=== PATIENT | male | born 1970 | race Hispanic/Latino ===

== ENCOUNTER 2020-07-19 15:46 | Emergency (ER) | payer SELFPAY ==
[2020-07-19 16:55] LABS: Amphetamine Screen,Urine Negative; Benzodiazepines Screen,Urine Negative; Cannabinoid Screen,Urine Negative; Cocaine Screen,Urine Negative; Methadone Screen,Urine Negative; Opiate Screen,Urine Negative
[2020-07-19 16:55] LABS: Basophils # (Auto) 0.1 K/mm3 (0.0-0.1); Basophils % (Auto) 0.6 % (0.0-1.8); Eosinophils # (Auto) 0.1 K/mm3 (0.0-0.4); Eosinophils % (Auto) 1.3 % (0.0-4.3); Hematocrit 44.3 % (35.5-45.6); Hemoglobin 15.4 gm/dl (11.8-15.2); Lymphocytes # (Auto) 4.3 K/mm3 (1.2-5.4); Lymphocytes % (Auto) 41.8 % (13.4-35.0); Mean Corpuscular HGB Conc 35 % (32-34); Mean Corpuscular Volume 92 fl (84-94); Monocytes # (Auto) 0.7 K/mm3 (0.0-0.8); Monocytes % (Auto) 6.8 % (0.0-7.3); Platelet Count 165 K/mm3 (140-440); Red Blood Count 4.79 M/mm3 (3.65-5.03)
[2020-07-19 17:00] LABS: Bilirubin,Urine NEG (Negative); Blood,Urine NEG (Negative); Color,Urine Colorless (Yellow); Protein,Urine <15 mg/dL mg/dL (Negative); RBC,Urine < 1.0 /HPF (0.0-6.0); Urobilinogen,Urine < 2.0 mg/dL (<2.0); WBC,Urine < 1.0 /HPF (0.0-6.0)
[2020-07-19 17:03] LABS: BUN/Creatinine Ratio 8; Blood Urea Nitrogen 6 mg/dL (9-20); Calcium 9.2 mg/dL (8.4-10.2); Hemolysis Index 9
[2020-07-19] MEDS ORDERED: SODIUM CHLORIDE 0.9% 1000 ML 1,000 ML IV ONE (17:44)
[2020-07-19] MEDS ORDERED: LORazepam 2 MG/ML VIAL IM PRN (17:44)
[2020-07-19] MEDS ORDERED: HALOPERIDOL LACTATE 5 MG/1 ML INJ IM PRN (17:44)
[2020-07-19] MEDS ORDERED: POTASSIUM CHLORIDE ER 20 MEQ TAB PO ONE (17:45)
[2020-07-19] MEDS ORDERED: chlordiazePOXIDE 25 MG CAP PO PRN ×2 (17:45)
[2020-07-19] MEDS ORDERED: LORazepam 2 MG TAB PO PRN (17:45)
[2020-07-19] MEDS ORDERED: LORazepam 2 MG/ML VIAL IV PRN (17:45)
--- NOTE | 2020-07-19 17:47 | Emergency Department Report ---
<BC MCGRATH - Last Filed: 07/19/20 18:46> ED General Adult HPI - General Chief complaint: Psych Stated complaint: MH Time Seen by Provider: 07/19/20 17:35 - Related Data Home Medications Medication Instructions Recorded Confirmed Last Taken No Known Home Medications [No 07/19/20 07/19/20 Unknown Reported Home Medications] Allergies Allergy/AdvReac Type Severity Reaction Status Date / Time No Known Allergies Allergy Unverified 07/22/20 09:58 ED Past Medical Hx - Medications Home Medications: Home Medications Medication Instructions Recorded Confirmed Last Taken Type No Known Home Medications [No 07/19/20 07/19/20 Unknown History Reported Home Medications] - Procedure Description Procedures done: Under sterile field, I used Betadine to clean the area. I then used 2% lidocaine plain and injected 3 mL to the proximal right index for digital block. I then used a high-temperature cautery to the right index nail. Minimal bleeding noted from the nail with successful subungual hematoma eviction. Patient tolerated procedure well with no signs of distress. ED Medical Decision Making - Lab Data Result diagrams: 07/19/20 16:05 07/19/20 16:05 ED Disposition Clinical Impression: Hypokalemia, Medical clearance for psychiatric admission Alcohol dependence Qualifiers: Substance use status: alcohol-induced psychotic disorder Complication of substance-induced condition: with unspecified complication Qualified Code(s): F10.259 - Alcohol dependence with alcohol-induced psychotic disorder, unspecified Subungual contusion of finger Qualifiers: Encounter type: initial encounter Qualified Code(s): S60.10XA - Contusion of unspecified finger with damage to nail, initial encounter Disposition: DC/TX-70 ANOTHER TYPE HLTHCARE Condition: Good Referrals: PRIMARY CARE, [Primary Care Provider] - 3-5 Days <MARY GRACE ACOSTA - Last Filed: 07/21/20 03:36> ED Course - Reevaluation(s) Reevaluation #2: 07/21/20 03:37 daily potassium ordered discontinued since pt po Kcl is not in normal range. ED Medical Decision Making - Lab Data Result diagrams: 07/19/20 16:05 07/19/20 20:50 <MADI CONNELLY - Last Filed: 07/23/20 06:13> ED General Adult HPI - General PUI?: No Source: patient, RN notes reviewed Mode of arrival: Ambulatory Limitations: Other (Alcohol intoxication) - History of Present Illness Initial comments: The patient was evaluated in the emergency department for symptoms described in the history of present illness. He/she was evaluated in the context of the global COVID-19 pandemic, which necessitated consideration that the patient might be at risk for infection with the virus that causes COVID-19. Institutional protocols and algorithms that pertain to the evaluation of pat ients at risk for COVID-19 are in a state of rapid change based on information released by regulatory bodies including the CDC and federal and state organizations. These policies and algorithms were followed during the patient's care in the emergency department. Please note that these policies, procedures and recommendations changed on a rapid basis. Patient is a 50-year-old gentleman. He is not known to myself previously. He reports that he has a history of alcoholism, and hepatitis C. The patient presents to the ER today with a complaint of painless suicidality. The patient is also stating that he wants to "get off alcohol." His last alcoholic beverage was earlier on today. He states he would not really kill himself, "because I am a good Shinto, and I would never do that to myself." The patient is right-hand dominant and states he is up-to-date with tetanus vaccination. He denies headache, neck pain, chest pain, abdominal pain, shortness of breath, hematemesis and bright red blood per rectum, and he denies trying to overdose on anything. However, he states that he has contemplated overdosing. On review of systems, he has sharp throbbing aching pain in his right pointer finger, after a crush injury at work yesterday. Otherwise, denies new or different physical pain. He states that he walks to this hospital. He is not accompanied by friends or family at this time for additional information/collateral information. His sensation of suicidality at this point time is in constant, Neurontin, does not radiate anywhere, he does not endorse any exacerbating or relieving factors. -: days(s) Location: right, upper extremity Radiation: other Quality: other Consistency: other Improves with: other Worsens with: other Associated Symptoms: other ED Review of Systems ROS: Stated complaint: MH Other details as noted in HPI Constitutional: see HPI Eyes: as per HPI ENT: as per HPI Respiratory: see HPI Cardiovascular: as per HPI Endocrine: see HPI Gastrointestinal: as per HPI Genitourinary: as per HPI Musculoskeletal: as per HPI Skin: as per HPI Neurological: as per HPI Psychiatric: as per HPI Hematological/Lymphatic: as per HPI ED Past Medical Hx - Past Medical History Additional medical history: HEP C - Surgical History Additional Surgical History: EYE SURGERY - Social History Smoking Status: Current Every Day Smoker Substance Use Type: Alcohol ED Physical Exam - General Limitations: No Limitations General appearance: appears intoxicated - Head Head exam: Present: atraumatic, normocephalic - Eye Eye exam: Present: normal appearance, EOMI - ENT ENT exam: Present: normal exam, normal orophraynx, mucous membranes moist, normal external ear exam - Neck Neck exam: Present: normal inspection, full ROM. Absent: tenderness, meningismus - Respiratory Respiratory exam: Present: normal lung sounds bilaterally. Absent: respiratory distress, wheezes, rales, rhonchi, stridor, decreased breath sounds - Cardiovascular Cardiovascular Exam: Present: regular rate, normal rhythm, normal heart sounds. Absent: bradycardia, tachycardia, irregular rhythm, systolic murmur, diastolic murmur, rubs, gallop - GI/Abdominal GI/Abdominal exam: Present: soft. Absent: distended, tenderness, guarding, rebound, rigid, pulsatile mass - Rectal Rectal exam: Present: deferred - Extremities Exam Extremities exam: Present: full ROM, tenderness (There is right pointer finger tenderness), other (2+ pulses noted in the bilateral upper extremities. There is no long bony tenderness. The muscular compartments are soft. The pelvis is stable). Absent: normal inspection (Upper extremities are within normal limits, with the exception of the distal dorsal aspect of the right pointer finger, whic h is somewhat tender, and has an ecchymosis underneath the nail bed. The ecchymosis compresses 100% of the area underneath the nailbed), pedal edema, calf tenderness - Back Exam Back exam: Present: normal inspection. Absent: tenderness, CVA tenderness (R), CVA tenderness (L), paraspinal tenderness, vertebral tenderness - Neurological Exam Neurological exam: Present: alert, other (No facial droop. Tongue midline. Ex traocular movements intact bilaterally. Facial sensation intact to light touch in V1, V2, V3 distribution bilaterally. 5 and a 5 strength in 4 extremities. Sensation intact to light touch in 4 extremities.) - Psychiatric Psychiatric exam: Present: anxious, suicidal ideation. Absent: homicidal ideation - Skin Skin exam: Present: warm, dry, intact, normal color. Absent: rash ED Course Vital Signs 07/19/20 07/19/20 07/19/20 16:02 17:46 17:53 Temperature 98.0 F 98.0 F Pulse Rate 98 H 87 Respiratory 20 24 20 Rate Blood Pressure 120/81 Blood Pressure 101/66 [Right] O2 Sat by Pulse 96 99 99 Oximetry 07/19/20 07/20/20 07/20/20 20:10 16:17 19:40 Temperature 97.8 F 98.5 F 98.4 F Pulse Rate 79 89 87 Respiratory 18 17 18 Rate Blood Pressure Blood Pressure 148/89 146/86 165/96 [Right] O2 Sat by Pulse 98 94 95 Oximetry 07/21/20 07/21/20 07/21/20 02:03 07:55 07:57 Temperature 97.9 F 98.1 F Pulse Rate 86 89 Respiratory 18 18 18 Rate Blood Pressure Blood Pressure 157/89 142/92 [Right] O2 Sat by Pulse 95 97 97 Oximetry 07/21/20 07/21/20 07/21/20 14:30 19:45 21:54 Temperature 97.8 F 97.8 F Pulse Rate 88 94 H Respiratory 18 18 18 Rate Blood Pressure Blood Pressure 154/98 133/90 [Right] O2 Sat by Pulse 96 97 Oximetry 07/21/20 07/22/20 07/22/20 22:54 02:06 08:00 Temperature 98.0 F Pulse Rate 76 Respiratory 18 16 Rate Blood Pressure Blood Pressure 129/81 [Right] O2 Sat by Pulse 95 95 Oximetry 07/22/20 07/22/20 08:37 19:15 Temperature 98.0 F 97.9 F Pulse Rate 85 88 Respiratory 20 16 Rate Blood Pressure 146/93 Blood Pressure 149/97 [Right] O2 Sat by Pulse 96 94 Oximetry - Reevaluation(s) Reevaluation #1: 07/19/20 19:21 Differential diagnosis, including but not limited to: Alcohol intoxication, electrolyte derangement, subungual hematoma, right pointer finger fracture, dislocation, contusion, drug-induced psychiatric disorder, medical clearance for psychiatric placement, alcoholic starvation ketosis Assessment and plan: 50-year-old gentleman who is intoxicated and suicidal. In terms of the patient's suicidality, placed on hold, obtain psychiatric consultation. Place patient on alcohol withdrawal protocol. In terms of alcohol intoxication, start multivitamin, thiamine, give IV fluids, repeat basic metabolic panel. Replete hypokalemia, mild anion gap is likely secondary to alcoholic starvation ketosis. In terms of right pointer finger subungual hematoma, x-ray of the finger shows no fracture or dislocation, the patient states he is up-to-date with tetanus vaccination. Performed trephination of nail to relieve subungual hematoma, and placed in a finger splint. Reassess after aforementioned interventions, and when clinically sober, and when patient has completed his psychiatric evaluation. We anticipate that once the patient is sober, if he presents is lucid, calm and cooperative, and is not homicidal suicidal, outpatient management would be appropriate Reevaluation #2: 07/19/20 21:48 Repeat basic metabolic panel shows improvement in potassium as well as market improvement in anion gap. Patient resting comfortably and in no acute distress, elevated CK reviewed and appreciated, renal function within normal limits, muscular compartments are soft. At this point in time, patient does not appear to have an immediate medical contraindication to psychiatric admission, evaluation, consultation and placement. A 1013 was recommended by the psychiatry consulting team, therefore, it has been ordered and executed. ED Medical Decision Making - Lab Data Result diagrams: 07/19/20 16:05 07/19/20 20:50 Vital Signs 07/19/20 07/19/20 07/19/20 16:02 17:46 17:53 Temperature 98.0 F 98.0 F Pulse Rate 98 H 87 Respiratory 20 24 20 Rate Blood Pressure 120/81 Blood Pressure 101/66 [Right] O2 Sat by Pulse 96 99 99 Oximetry Lab Results 07/19/20 07/19/20 07/19/20 Range/Units 16:05 16:05 16:05 WBC (4.5-11.0) K/mm3 RBC (3.65-5.03) M/mm3 Hgb (11.8-15.2) gm/dl Hct (35.5-45.6) % MCV (84-94) fl MCH (28-32) pg MCHC (32-34) % RDW (13.2-15.2) % Plt Count (140-440) K/mm3 Lymph % (Auto) (13.4-35.0) % Ellis % (Auto) (0.0-7.3) % Eos % (Auto) (0.0-4.3) % Baso % (Auto) (0.0-1.8) % Lymph # (Auto) (1.2-5.4) K/mm3 Ellis # (Auto) (0.0-0.8) K/mm3 Eos # (Auto) (0.0-0.4) K/mm3 Baso # (Auto) (0.0-0.1) K/mm3 Seg Neutrophils % (40.0-70.0) % Seg Neutrophils # (1.8-7.7) K/mm3 Sodium 142 (137-145) mmol/L Potassium 3.4 L (3.6-5.0) mmol/L Chloride 102.1 (98-107) mmol/L Carbon Dioxide 20 L (22-30) mmol/L Anion Gap 23 mmol/L BUN 6 L (9-20) mg/dL Creatinine 0.8 (0.8-1.3) mg/dL Estimated GFR > 60 ml/min BUN/Creatinine Ratio 8 % Glucose 124 H (75-100) mg/dL Calcium 9.2 (8.4-10.2) mg/dL Urine Color (Yellow) Urine Turbidity (Clear) Urine pH (5.0-7.0) Ur Specific Etlan (1.003-1.030) Urine Protein (Negative) mg/dL Urine Glucose (UA) (Negative) mg/dL Urine Ketones (Negative) mg/dL Urine Blood (Negative) Urine Nitrite (Negative) Urine Bilirubin (Negative) Urine Urobilinogen (<2.0) mg/dL Ur Leukocyte Esterase (Negative) Urine WBC (Auto) (0.0-6.0) /HPF Urine RBC (Auto) (0.0-6.0) /HPF Salicylates < 0.3 L (2.8-20.0) mg/dL Urine Opiates Screen Urine Methadone Screen Acetaminophen 5.0 L (10.0-30.0) ug/mL Ur Barbiturates Screen Ur Phencyclidine Scrn Ur Amphetamines Screen U Benzodiazepines Scrn Urine Cocaine Screen U Marijuana (THC) Screen Drugs of Abuse Note Plasma/Serum Alcohol (0-0.07) % 07/19/20 07/19/20 07/19/20 Range/Units 16:05 16:05 16:14 WBC 10.2 (4.5-11.0) K/mm3 RBC 4.79 (3.65-5.03) M/mm3 Hgb 15.4 H (11.8-15.2) gm/dl Hct 44.3 (35.5-45.6) % MCV 92 (84-94) fl MCH 32 (28-32) pg MCHC 35 H (32-34) % RDW 14.0 (13.2-15.2) % Plt Count 165 (140-440) K/mm3 Lymph % (Auto) 41.8 H (13.4-35.0) % Ellis % (Auto) 6.8 (0.0-7.3) % Eos % (Auto) 1.3 (0.0-4.3) % Baso % (Auto) 0.6 (0.0-1.8) % Lymph # (Auto) 4.3 (1.2-5.4) K/mm3 Ellis # (Auto) 0.7 (0.0-0.8) K/mm3 Eos # (Auto) 0.1 (0.0-0.4) K/mm3 Baso # (Auto) 0.1 (0.0-0.1) K/mm3 Seg Neutrophils % 49.5 (40.0-70.0) % Seg Neutrophils # 5.1 (1.8-7.7) K/mm3 Sodium (137-145) mmol/L Potassium (3.6-5.0) mmol/L Chloride (98-107) mmol/L Carbon Dioxide (22-30) mmol/L Anion Gap mmol/L BUN (9-20) mg/dL Creatinine (0.8-1.3) mg/dL Estimated GFR ml/min BUN/Creatinine Ratio % Glucose (75-100) mg/dL Calcium (8.4-10.2) mg/dL Urine Color Colorless (Yellow) Urine Turbidity Clear (Clear) Urine pH 6.0 (5.0-7.0) Ur Specific Etlan 1.002 L (1.003-1.030) Urine Protein <15 mg/dl (Negative) mg/dL Urine Glucose (UA) Neg (Negative) mg/dL Urine Ketones Neg (Negative) mg/dL Urine Blood Neg (Negative) Urine Nitrite Neg (Negative) Urine Bilirubin Neg (Negative) Urine Urobilinogen < 2.0 (<2.0) mg/dL Ur Leukocyte Esterase Neg (Negative) Urine WBC (Auto) < 1.0 (0.0-6.0) /HPF Urine RBC (Auto) < 1.0 (0.0-6.0) /HPF Salicylates (2.8-20.0) mg/dL Urine Opiates Screen Urine Methadone Screen Acetaminophen (10.0-30.0) ug/mL Ur Barbiturates Screen Ur Phencyclidine Scrn Ur Amphetamines Screen U Benzodiazepines Scrn Urine Cocaine Screen U Marijuana (THC) Screen Drugs of Abuse Note Plasma/Serum Alcohol 0.29 H (0-0.07) % 07/19/20 Range/Units 16:14 WBC (4.5-11.0) K/mm3 RBC (3.65-5.03) M/mm3 Hgb (11.8-15.2) gm/dl Hct (35.5-45.6) % MCV (84-94) fl MCH (28-32) pg MCHC (32-34) % RDW (13.2-15.2) % Plt Count (140-440) K/mm3 Lymph % (Auto) (13.4-35.0) % Ellis % (Auto) (0.0-7.3) % Eos % (Auto) (0.0-4.3) % Baso % (Auto) (0.0-1.8) % Lymph # (Auto) (1.2-5.4) K/mm3 Ellis # (Auto) (0.0-0.8) K/mm3 Eos # (Auto) (0.0-0.4) K/mm3 Baso # (Auto) (0.0-0.1) K/mm3 Seg Neutrophils % (40.0-70.0) % Seg Neutrophils # (1.8-7.7) K/mm3 Sodium (137-145) mmol/L Potassium (3.6-5.0) mmol/L Chloride (98-107) mmol/L Carbon Dioxide (22-30) mmol/L Anion Gap mmol/L BUN (9-20) mg/dL Creatinine (0.8-1.3) mg/dL Estimated GFR ml/min BUN/Creatinine Ratio % Glucose (75-100) mg/dL Calcium (8.4-10.2) mg/dL Urine Color (Yellow) Urine Turbidity (Clear) Urine pH (5.0-7.0) Ur Specific Etlan (1.003-1.030) Urine Protein (Negative) mg/dL Urine Glucose (UA) (Negative) mg/dL Urine Ketones (Negative) mg/dL Urine Blood (Negative) Urine Nitrite (Negative) Urine Bilirubin (Negative) Urine Urobilinogen (<2.0) mg/dL Ur Leukocyte Esterase (Negative) Urine WBC (Auto) (0.0-6.0) /HPF Urine RBC (Auto) (0.0-6.0) /HPF Salicylates (2.8-20.0) mg/dL Urine Opiates Screen Negative Urine Methadone Screen Negative Acetaminophen (10.0-30.0) ug/mL Ur Barbiturates Screen Negative Ur Phencyclidine Scrn Negative Ur Amphetamines Screen Negative U Benzodiazepines Scrn Negative Urine Cocaine Screen Negative U Marijuana (THC) Screen Negative Drugs of Abuse Note Disclamer Plasma/Serum Alcohol (0-0.07) % - Radiology Data Radiology results: report reviewed, image reviewed Print Report Referring Physician: MADI CONNELLY Patient Name: BAKARI HARLEY Date of : 1970 Sex: Male Report Date: 2020-07-19 Report Status: Finalized Findings [facility] [address] [place] [address] XRay Report Signed Patient: BAKARI HARLEY MR#: [id number] : 1970 Acct:[id number] Age/Sex: 50 / M ADM Date: 07/19/20 Loc: ED Attending Dr: Ordering Physician: MADI CONNLELY MD Date of Service: 07/19/20 Procedure(s): XR finger(s) 2+V RT Accession Number(s): [id number] cc: MADI CONNELLY MD Fl uoro Time In Minutes: RIGHT INDEX FINGER 3 VIEWS INDICATION / CLINICAL INFORMATION: right second finger/ pointer finger crush injury. COMPARISON: None available. FINDINGS: Fracture or dislocation is seen within the right index finger or hand. Mild soft tissue swelling is seen within the right index finger. Signer Name: Denys James MD Signed: 07/19/2020 6:16 PM Workstation Name: [id number] Transcribed By: TL Dictated By: Denys James MD Electronically Authenticated By: Denys James MD Signed Date/Time: 07/19/201815 DD/ 14 Critical care attestation.: If time is entered above; I have spent that time in minutes in the direct care of this critically ill patient, excluding procedure time. ED Disposition Is pt being admited?: No Does the pt Need Aspirin: No
[2020-07-19] MEDS ORDERED: D5W/0.45% NACL 1,000 ML IV SCH (18:00)
--- NOTE | 2020-07-19 18:21 | XRay Report ---
RIGHT INDEX FINGER 3 VIEWS INDICATION / CLINICAL INFORMATION: right second finger/ pointer finger crush injury. COMPARISON: None available. FINDINGS: Fracture or dislocation is seen within the right index finger or hand. Mild soft tissue swelling is s een within the right index finger. Signer Name: Denys James MD Signed: 07/19/2020 6:16 PM Workstation Name: [id number]
[2020-07-19] MEDS: POTASSIUM CHLORIDE 10 MEQ 10 MEQ/100 ML BAG IV SCH ×2 (18:32→19:48)
[2020-07-19] MEDS ORDERED: DEXTROSE 50% IN WATER (25GM) 50 ML SYRINGE IV PRN (19:25)
[2020-07-19] MEDS: MULTIVITAMINS ,THERAPEUTIC TAB PO SCH (19:50)
[2020-07-19 21:18] LABS: Blood Urea Nitrogen 5 mg/dL (9-20); Calcium 8.6 mg/dL (8.4-10.2); Hemolysis Index 12
[2020-07-19 21:19] LABS: BUN/Creatinine Ratio 7
[2020-07-20] MEDS ORDERED: POTASSIUM CHLORIDE ER 20 MEQ TAB PO SCH (10:00)
[2020-07-20] MEDS: THIAMINE 100 MG TAB PO SCH (11:21)
[2020-07-20] MEDS: FOLIC ACID 1 MG TAB PO SCH (11:22)
[2020-07-20] MEDS: MULTIVITAMINS ,THERAPEUTIC TAB PO SCH (11:22)
--- NOTE | 2020-07-20 13:37 | Consultation ---
History of Present Illness - Reason for Consult Consult date: 07/20/20 Reason for consult: MHE Requesting physician: MADI CONNELLY - History of Present Psychiatric Illness Per ED Provider: Patient is a 50-year-old gentleman. He is not known to myself previously. He reports that he has a history of alcoholism, and hepatitis C. The patient presents to the ER today with a complaint of painless suicidality. The patient is also stating that he wants to "get off alcohol." His last alcoholic beverage was earlier on today. He states he would not really kill himself, "because I am a good Druze, and I would never do that to myself." The patient is right-hand dominant and states he is up-to-date with tetanus v accination. He denies headache, neck pain, chest pain, abdominal pain, shortness of breath, hematemesis and bright red blood per rectum, and he denies trying to overdose on anything. However, he states that he has contemplated overdosing. He states that he walks to this hospital. He is not accompanied by friends or family at this time for additional information/collateral information. His sensation of suicidality at this point time is in constant, Neurontin, does not radiate anywhere, he does not endorse any exacerbating or relieving factors. Per MHA: Pt is a 50 yo male presenting to ED for MHE, as pt SI with plan, alcohol abuse. During ax, pt presented with cooperative behaviors, anxious mood and incongruent affect. Pt reports onset of SI with plan 07/19/20. Pt reports plan to cut wrists. Pt repots SI daily for two weeks "I haven't done good with life, children, marriage". Pt identified trigger of family discord and raising grandchildren. Pt denies hx of attempts. Pt denies HI. Pt reports A/V Hallucinations. Pt reports a small child is talking to him and he can see her. Pt reprots hx of Bipolar Disorder, Anxiety. Pt is noncompliant with medications and mh tx for four months. Pt reports alcohol abuse. Pt reports drinking a 1/5 of "whatever" I can get daily since age 18. Pt reports last use 07/19/20 before admission. Denies drug use or abuse. Pt does present with any active withdrawal symptoms including nausea, vomiting , shaking. Pt denies hx of withdrawl symptoms. Pt reports stable housing with spouse in [place], [place]. Pt is employed FT and travels for work. Pt denies legal issues. 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 PSYCH HPI Patient is a 50-year old currently homeless unemployed and male with past psychiatric history of PTSD and severe anxiety and past medical history of hypertension presented to the ED requesting for detox and also with complaint of suicidal ideations. Patient self acknowledges being an alcoholic says that he needs to get clean and wants to get some help with detoxification. Patient stated that ER called the sober living center and they recommended if he gets mental and medical help for his alcohol use and suicidal thoughts before he can come back for processing. Patient reported he has been drinking since age 10, and he drinks also of alcoholic drinks almost every day, reported alcohol influencing his marriage and negative way and is leading to divorce and no communication effort between him and his kids. Patient states he has been having jittery anxiety stable because he has been thinking about killing himself. PAST PSYCHIATRIC HISTORY Diagnoses: PTSD and severe anxiety Suicide attempts or Self-harm behavior: Yes Prior psychiatric hospitalizations: yes Substance Abuse history: Alcohol Previous psychiatric medications tried: Yes Outpatient treatment: unknown PAST MEDICAL HISTORY: HTN Family Psychiatric History: None reported or documented SOCIAL HISTORY Marital Status: Living Arrangements: homeless Employment Status: unemployed Access to guns/weapons: none reported Education: College drop out History of Abuse: none reported Legal History: yes REVIEW OF SYSTEMS Constitutional: Negative for weight loss ENT: Negative for stridor Respiratory: Negative for cough or hemoptysis All other systems reviewed and are negative MENTAL STATUS EXAMINATION General Appearance and Behavior: Age appropriate, good hygiene, wearing appropriate clothes, lying in bed, good eye contact, cooperative polite with questioning. Cooperation: Participating/engaged, Psychomotor Behavior: unremarkable and within normal limits Mood: Depressed Affect and affective range: dysthymic, Thought Process: Fluent/Logical, Thought Content: Hopelessness, Helplessness, Speech: Normal volume, Regular rate and rhythm Intellectual Functioning: Average Suicidal Ideation: Suicidal Homicidal Ideation: Denies HI Impulse Control: Unimpaired Insight and Judgment: Normal insight and judgment Memory: Normal, Attention: Normal, Orientation: Alert, oriented, Assessment and Plan - Psychiatric problem (1) MDD (major depressive disorder) Current Visit: Yes Status: Acute (2) Alcohol use disorder Current Visit: Yes Status: Acute Treatment Plan MEDICATIONS: Restarted home medications Risks, benefits and alternatives of medications discussed with the patient, questions answered and consent obtained from patient. PSYCHOTHERAPY: Supportive psychotherapy provided MEDICAL: Per primary team DELIRIUM PRECAUTIONS: Please re-orient patient frequently, keep lights on during the day, and minimize benzodiazepines and opiates as these medications could worsen patient's confusion. PAGE MAKEUP SYSTEM OPERATOR: DISPOSITION: Do Recommend acute inpatient psychiatric hospitalization at this time LEGAL STATUS: 1013 FOLLOW-UP: Will follow Thank you for the consult. Please contact with any questions and/or concerns. Medications and Allergies Allergies Allergy/AdvReac Type Severity Reaction Status Date / Time No Known Allergies Allergy Unverified 07/19/20 15:58 Home Medications Medication Instructions Recorded Confirmed Last Taken Type No Known Home Medications [No 07/19/20 07/19/20 Unknown History Reported Home Medications] Active Meds: Active Medications Chlordiazepoxide HCl (Librium) 50 mg PO Q1HR PRN PRN Reason: CIWA-Ar 8-15 Chlordiazepoxide HCl (Librium) 100 mg PO Q1HR PRN PRN Reason: CIWA-Ar 16-25 Dextrose (D50w (25gm) Syringe) 50 ml IV Q30MIN PRN; Protocol PRN Reason: Hypoglycemia Folic Acid (Folvite) 1 mg PO QDAY [facility] Last Admin: 07/20/20 11:22 Dose: 1 mg Documented by: Haloperidol Lactate (Haldol) 5 mg IM Q6HR PRN PRN Reason: Agitation Dextrose/Sodium Chloride (D5/0.45ns) 1,000 mls @ 0 mls/hr IV DIRECT [facility] Last Admin: 07/19/20 18:25 Dose: 999 mls/hr Documented by: Lorazepam (Ativan) 2 mg IM Q4HR PRN PRN Reason: Agitation Lorazepam (Ativan) 2 mg PO Q1HR PRN PRN Reason: CIWA-Ar 8-15 Lorazepam (Ativan) 4 mg PO Q1HR PRN PRN Reason: CIWA-Ar 16-25 Last Admin: 07/19/20 19:11 Dose: 4 mg Documented by: Lorazepam (Ativan) 4 mg IV Q15MIN PRN PRN Reason: CIWA-Ar >25 Multivitamins (Theragran Tab) 1 each PO QDAY [facility] Last Admin: 07/20/20 11:22 Dose: 1 each Documented by: Potassium Chloride (K-Dur) 40 meq PO QDAY [facility] Last Admin: 07/20/20 11:22 Dose: 40 meq Documented by: Thiamine HCl (Vitamin B-1) 100 mg PO QDAY [facility] Last Admin: 07/20/20 11:21 Dose: 100 mg Documented by: Mental Status Exam - Vital signs Last Vital Signs Temp 97.8 F 07/19/20 20:10 Pulse 79 07/19/20 20:10 Resp 18 07/19/20 20:10 BP 148/89 07/19/20 20:10 Pulse Ox 98 07/19/20 20:10 Results Result Diagrams: 07/19/20 16:05 07/19/20 20:50 Abnormal lab results 07/19/20 07/19/20 07/19/20 Range/Units 16:05 16:05 16:05 Hgb (11.8-15.2) gm/dl MCHC (32-34) % Lymph % (Auto) (13.4-35.0) % Potassium 3.4 L (3.6-5.0) mmol/L Carbon Dioxide 20 L (22-30) mmol/L BUN 6 L (9-20) mg/dL Creatinine (0.8-1.3) mg/dL Glucose 124 H (75-100) mg/dL Total Creatine Kinase (55-170) units/L Ur Specific [place] (1.003-1.030) Salicylates < 0.3 L (2.8-20.0) mg/dL Acetaminophen 5.0 L (10.0-30.0) ug/mL Plasma/Serum Alcohol (0-0.07) % 07/19/20 07/19/20 07/19/20 Range/Units 16:05 16:05 16:05 Hgb 15.4 H (11.8-15.2) gm/dl MCHC 35 H (32-34) % Lymph % (Auto) 41.8 H (13.4-35.0) % Potassium (3.6-5.0) mmol/L Carbon Dioxide (22-30) mmol/L BUN (9-20) mg/dL Creatinine (0.8-1.3) mg/dL Glucose (75-100) mg/dL Total Creatine Kinase 402 H (55-170) units/L Ur Specific [place] (1.003-1.030) Salicylates (2.8-20.0) mg/dL Acetaminophen (10.0-30.0) ug/mL Plasma/Serum Alcohol 0.29 H (0-0.07) % 07/19/20 07/19/20 Range/Units 16:14 20:50 Hgb (11.8-15.2) gm/dl MCHC (32-34) % Lymph % (Auto) (13.4-35.0) % Potassium (3.6-5.0) mmol/L Carbon Dioxide (22-30) mmol/L BUN 5 L (9-20) mg/dL Creatinine 0.7 L (0.8-1.3) mg/dL Glucose 101 H (75-100) mg/dL Total Creatine Kinase (55-170) units/L Ur Specific [place] 1.002 L (1.003-1.030) Salicylates (2.8-20.0) mg/dL Acetaminophen (10.0-30.0) ug/mL Plasma/Serum Alcohol (0-0.07) % All other labs normal. Assessment and Plan - Psychiatric problem (1) MDD (major depressive disorder) Current Visit: Yes Status: Acute (2) Alcohol use disorder Current Visit: Yes Status: Acute
[2020-07-20] MEDS: SERTRALINE 50 MG TAB PO SCH (15:00)
[2020-07-20] MEDS: traZODone 50 MG TAB PO SCH (22:02)
[2020-07-21] MEDS: THIAMINE 100 MG TAB PO SCH (09:50)
[2020-07-21] MEDS: SERTRALINE 50 MG TAB PO SCH (09:51)
[2020-07-21] MEDS: MULTIVITAMINS ,THERAPEUTIC TAB PO SCH (09:51)
[2020-07-21] MEDS: LORazepam 2 MG TAB PO PRN ×2 (09:51→14:34)
[2020-07-21] MEDS: FOLIC ACID 1 MG TAB PO SCH (09:51)
--- NOTE | 2020-07-21 11:17 | Progress Note ---
Subjective - Reason for Consult Consult date: 07/21/20 Reason for consult: MHE Requesting physician: MADI CONNELLY - Chief Complaint Chief complaint: Psych Progress Patient seen today, reports improvement in sleep, still endorses SI, and hearing voices telling him to hurt self. Patient also reports still feeling jittery and shaky. REVIEW OF SYSTEMS Constitutional: Negative for weight loss ENT: Negative for stridor Respiratory: Negative for cough or hemoptysis All other systems reviewed and are negative MENTAL STATUS EXAMINATION General Appearance and Behavior: Age appropriate, good hygiene, wearing appropriate clothes, lying in bed, good eye contact, cooperative polite with questioning. Cooperation: Participating/engaged, Psychomotor Behavior: unremarkable and within normal limits Mood: Depressed Affect and affective range: dysthymic, Thought Process: Fluent/Logical, Thought Content: Hopelessness, Helplessness, Speech: Normal volume, Regular rate and rhythm Intellectual Functioning: Average Suicidal Ideation: Suicidal Homicidal Ideation: Denies HI Impulse Control: Unimpaired Insight and Judgment: Normal insight and judgment Memory: Normal, Attention: Normal, Orientation: Alert, oriented, Assessment and Plan - Psychiatric problem (1) MDD (major depressive disorder) Current Visit: Yes Status: Acute (2) Alcohol use disorder Current Visit: Yes Status: Acute Treatment Plan MEDICATIONS: Restarted home medications Risks, benefits and alternatives of medications discussed with the patient, questions answered and consent obtained from patient. PSYCHOTHERAPY: Supportive psychotherapy provided MEDICAL: Per primary team DELIRIUM PRECAUTIONS: Please re-orient patient frequently, keep lights on during the day, and minimize benzodiazepines and opiates as these medications could worsen patient's confusion. THERAPEUTIC ASSISTANT: DISPOSITION: Do Recommend acute inpatient psychiatric hospitalization at this time LEGAL STATUS: 1013 FOLLOW-UP: Will follow Thank you for the consult. Please contact with any questions and/or concerns. Mental Status Exam - Vital signs Last Vital Signs Temp 98.1 F 07/21/20 07:57 Pulse 89 07/21/20 07:57 Resp 18 07/21/20 07:57 BP 142/92 07/21/20 07:57 Pulse Ox 97 07/21/20 07:57 Assessment and Plan - Patient Problems (1) MDD (major depressive disorder) Current Visit: Yes Status: Acute (2) Alcohol use disorder Current Visit: Yes Status: Acute
[2020-07-21] MEDS ORDERED: ACETAMINOPHEN 500 MG TAB PO ONE (21:32)
[2020-07-21] MEDS: traZODone 50 MG TAB PO SCH (21:54)
[2020-07-22] MEDS: SERTRALINE 50 MG TAB PO SCH (09:38)
[2020-07-22] MEDS: THIAMINE 100 MG TAB PO SCH (09:38)
[2020-07-22] MEDS: MULTIVITAMINS ,THERAPEUTIC TAB PO SCH (09:38)
[2020-07-22] MEDS: FOLIC ACID 1 MG TAB PO SCH (09:38)
--- NOTE | 2020-07-22 10:43 | Progress Note ---
Subjective - Reason for Consult Consult date: 07/22/20 Reason for consult: MHE Requesting physician: MADI CONNELLY - Chief Complaint Chief complaint: Psych Progress Patient seen today, when asked how he was doing, says he is still alive he guess and he karolina make it. Reports mood is okay but still endorses SI, and hearing voices telling him to hurt self. REVIEW OF SYSTEMS Constitutional: Negative for weight loss ENT: Negative for stridor Respiratory: Negative for cough or hemoptysis All other systems reviewed and are negative MENTAL STATUS EXAMINATION General Appearance and Behavior: Age appropriate, good hygiene, wearing appropriate clothes, lying in bed, good eye contact, cooperative polite with questioning. Cooperation: Participating/engaged, Psychomotor Behavior: unremarkable and within normal limits Mood: Depressed Affect and affective range: dysthymic, Thought Process: Fluent/Logical, Thought Content: Hopelessness, Helplessness, Speech: Normal volume, Regular rate and rhythm Intellectual Functioning: Average Suicidal Ideation: Suicidal Homicidal Ideation: Denies HI Impulse Control: Unimpaired Insight and Judgment: Normal insight and judgment Memory: Normal, Attention: Normal, Orientation: Alert, oriented, Assessment and Plan - Psychiatric problem (1) MDD (major depressive disorder) Current Visit: Yes Status: Acute (2) Alcohol use disorder Current Visit: Yes Status: Acute Treatment Plan MEDICATIONS: Restarted home medications Risks, benefits and alternatives of medications discussed with the patient, questions answered and consent obtained from patient. PSYCHOTHERAPY: Supportive psychotherapy provided MEDICAL: Per primary team DELIRIUM PRECAUTIONS: Please re-orient patient frequently, keep lights on during the day, and minimize benzodiazepines and opiates as these medications could worsen patient's confusion. QUALITY ASSURANCE CALIBRATOR: DISPOSITION: Do Recommend acute inpatient psychiatric hospitalization at this time LEGAL STATUS: 1013 FOLLOW-UP: Will follow Thank you for the consult. Please contact with any questions and/or concerns. Mental Status Exam - Vital signs Last Vital Signs Temp 98.0 F 07/22/20 08:37 Pulse 85 07/22/20 08:37 Resp 20 07/22/20 08:37 BP 149/97 07/22/20 08:37 Pulse Ox 96 07/22/20 08:37 Assessment and Plan - Patient Problems (1) MDD (major depressive disorder) Current Visit: Yes Status: Acute (2) Alcohol use disorder Current Visit: Yes Status: Acute
[2020-07-22 20:35] VITALS: BP 146/93
[2020-07-22] MEDS: traZODone 50 MG TAB PO SCH (21:59)
== END 2020-07-22 23:30 | disposition other institution (70) ==
LOC: ED 15:46
DX: S60.021A Contusion of right index finger without damage to nail, initial encounter (principal); E87.6 Hypokalemia; F10.20 Alcohol dependence, uncomplicated; X58.XXXA Exposure to other specified factors, initial encounter; Y93.89 Activity, other specified; Y92.89 Other specified places as the place of occurrence of the external cause; Y99.8 Other external cause status
CPT/HCPCS: 11740; 29130; 36415; 73140; 80048; 80307; 81001; 82550; 82962; 83735; 85025; 96365; 96366; 99285; J3480; J7030; 80320; G0480